=== PATIENT | male | born 1995 | race Caucasian/White ===

== ENCOUNTER 2019-04-03 00:11 | Emergency (ER) | payer SELFPAY ==
[2019-04-03] MEDS ORDERED: IPRATROPIUM/ALBUTEROL 0.5-2.5 MG/3 ML AMPUL NEB ONE ×2 (01:32→02:34)
[2019-04-03 02:18] LABS: ABSOLUTE BASOPHILS # (AUTO) 0.1 10^3/uL (0.0-0.2); ABSOLUTE EOSINOPHILS # (AUTO) 1.4 10^3/uL (0.0-0.6); ABSOLUTE LYMPHOCYTES (AUTO) 2.8 10^3/uL (0.5-4.7); ABSOLUTE NEUT (AUTO) 7.3 10^3/uL (1.7-8.2); EOSINOPHILS % (AUTO) 11.1 % (0-6); HEMATOCRIT 43.6 % (37.9-51.0); HEMOGLOBIN 14.8 g/dL (13.5-17.0); LYMPHOCYTES % (AUTO) 21.8 % (13-45); MEAN CORPUSCULAR HEMOGLOBIN 29.8 pg (27.0-33.4); MEAN CORPUSCULAR VOLUME 88 fl (80-97); MONOCYTES % (AUTO) 7.9 % (3-13); PLATELET COUNT 220 10^3/uL (150-450); RED BLOOD COUNT 4.97 10^6/uL (4.35-5.55); RED CELL DISTRIBUTION WIDTH 12.7 % (11.5-14.0); SEGMENTED NEUTROPHILS % (AUTO) 58.2 % (42-78); TOTAL CELLS COUNTED % (AUTO) 100 %; WHITE BLOOD COUNT 12.6 10^3/uL (4.0-10.5)
[2019-04-03 02:31] LABS: ANION GAP 7 (5-19); BLOOD UREA NITROGEN 14 mg/dL (7-20); CALCIUM 9.4 mg/dL (8.4-10.2); CARBON DIOXIDE 26 mmol/L (22-30); CHLORIDE 108 mmol/L (98-107); GLUCOSE 111 mg/dL (75-110); POTASSIUM 3.8 mmol/L (3.6-5.0)
--- NOTE | 2019-04-03 02:32 | RADIOLOGY REPORT (SQ) ---
EXAM DESCRIPTION: [facility]: XR CHEST 1 VIEW CLINICAL HISTORY: 23 years Male, cough COMPARISON: None. FINDINGS: Lungs are clear, with no focal infiltrate, pneumothorax, or pleural effusion. Mediastinum is within normal limits for this positioning. Bony structures are unremarkable. IMPRESSION: 1. No acute pulmonary findings.
--- NOTE | 2019-04-03 02:36 | ER Document Report ---
ED General - General Chief Complaint: Shortness Of Breath Stated Complaint: SHORTNESS OF BREATH Time Seen by Provider: 04/03/19 01:19 Notes: Patient is a 23-year-old male who presents the emergency department with a chief complaint of shortness of breath. He states that he has had on and off shortness of breath for the past week. He also states that he has had a cough. He states that earlier he felt worse, but he continues to have some shortness of breath. Patient denies any past medical history. Dates he has been coughing up some green and yellow sputum. Past medical history includes ADD, but the patient is he outgrew it. TRAVEL OUTSIDE OF THE [place] IN LAST 30 DAYS: No - Related Data Allergies/Adverse Reactions: No Known Allergies Allergy (Verified 04/03/19 00:18) Past Medical History - General Information source: Patient - Social History Smoking Status: Current Every Day Smoker Family History: Reviewed & Not Pertinent Patient has suicidal ideation: No Patient has homicidal ideation: No Renal/ Medical History: Denies: Hx Peritoneal Dialysis Review of Systems - Review of Systems Notes: REVIEW OF SYSTEMS: CONSTITUTIONAL : Denies recent illness. Denies recent unintentional weight loss. Denies fever, chills, or sweats. EENT: Denies eye, ear, throat, or mouth pain, discharge, or symptoms. Denies nasal or sinus congestion. CARDIOVASCULAR: Denies chest pain. RESPIRATORY: See HPI GASTROINTESTINAL: Denies nausea, vomiting, and diarrhea. Denies abdominal pain. Denies constipation. GENITOURINARY: Denies difficulty urinating, burning, blood in urine, urgency or frequency. MUSCULOSKELETAL: Denies neck and back pain. Denies joint pain or swelling. SKIN: Denies rash, itchiness, or lesions HEMATOLOGIC : Denies easy bruising or bleeding. LYMPHATIC: Denies swollen, painful, enlarged glands. NEUROLOGICAL: Denies no numbness or tingling denies weakness. Denies headache. Denies altered mental status. Denies alteration in speech. PSYCHIATRIC: Denies stress, anxiety, alteration in sleep patterns, or depression. All other systems reviewed and negative. Physical Exam - Vital signs Vitals: Temp Pulse Resp BP Pulse Ox 98.0 F 80 26 H 109/67 100 04/03/19 00:21 04/03/19 00:21 04/03/19 00:21 04/03/19 00:21 04/03/19 00:21 - Notes Notes: PHYSICAL EXAMINATION: GENERAL: Appears well, healthy, well-nourished, no acute distress. HEAD: Normocephalic, atraumatic. EYES: PERRL, conjunctiva normal, all extraocular movements intact, sclera nonicteric ENT: Moist mucous membranes. NECK: Supple, no noticeable swelling, redness, rash. Normal range of motion. LUNGS: Expiratory wheezes noted throughout all lung zapien. CARDIOVASCULAR: S1-S2, regular rate, regular rhythm. Radial pulses 2+, normal. ABDOMEN: Normoactive bowel sounds. Soft, nontender, no guarding, no rebound tenderness, and no masses palpated. EXTREMITIES: Normal strength and range of motion, no pitting or edema. No cyanosis. NEUROLOGICAL: Moves all extremities upon command. Strength 5/5 in all extremities. PSYCH: Normal mood, normal affect. SKIN: Warm, dry. No rash, lesions, ulcerations noted. Normal skin turgor. Course - Re-evaluation Re-evalutation: 04/03/19 02:36 I reevaluated the patient and the patient states he feels much better. His x- ray is negative for any pneumonia. He still is wheezy and I will order another DuoNeb treatment. Chest x-ray is negative for any pneumonia. Hematology shows a mild leukocytosis of 12,000, but no pneumonia noted on x-ray. Chemistries are unremarkable. 04/03/19 03:00 Patient states that he feels dramatically better at this time. No wheezes appreciated on examination. At this time, I will have the patient follow-up with a primary care provider where he lives. He is visiting from out of town. He [place] to [place]. He will be sent home with an albuterol inhaler with a spacer. Follow-up precautions were given. Verbal discharge instructions were given to the patient. They verbalized understanding. They are stable for discharge. - Vital Signs Vital signs: Temp Pulse Resp BP Pulse Ox 98.2 F 80 21 H 113/46 L 99 04/03/19 03:30 04/03/19 00:21 04/03/19 03:03 04/03/19 03:03 04/03/19 03:03 - Laboratory Result Diagrams: 04/03/19 01:55 04/03/19 01:55 Laboratory results interpreted by me: 04/03/19 04/03/19 01:55 01:55 WBC 12.6 H Eosinophils % 11.1 H Absolute Eosinophils 1.4 H Chloride 108 H Glucose 111 H - EKG Interpretation by Me Additional EKG results interpreted by me: 04/03/19 02:39 Sinus rhythm. Rate 62. NJ 132; QRS 90; QT 388; QTc 394. No ST elevations or depressions noted. Discharge - Discharge Clinical Impression: Shortness of breath, Wheezing Condition: Stable Disposition: HOME, SELF-CARE Additional Instructions: You are seen today in the emergency department for shortness of breath. Your shortness of breath improved with breathing treatments. You are being sent home with an albuterol inhaler to help with any shortness of breath. Your chest x- ray was normal. Please follow-up with a primary care provider where you live. You are being sent home with an albuterol inhaler you take 1 to 2 puffs every 4- 6 hours as needed for shortness of breath.
[2019-04-03] MEDS ORDERED: ALBUTEROL SULFATE HFA (90 MCG/PUFF) 8 GM MDI (1 MDI/ER DISP) IH PRN (03:31)
[2019-04-03 03:45] VITALS: BP 113/46
--- NOTE | 2019-04-03 14:33 | EKG REPORT ---
SEVERITY:- ABNORMAL ECG - SINUS RHYTHM NONSPECIFIC T ABNORMALITIES, INFERIOR LEADS : Confirmed by: Mary Harper MD 03-Apr-2019 14:32:56
== END 2019-04-03 03:45 | disposition home or self-care (01) ==
LOC: EDSEX → ER 00:11
DX: R06.02 Shortness of breath (principal); R06.2 Wheezing; R05 Cough; F98.8 Other specified behavioral and emotional disorders with onset usually occurring in childhood and adolescence; F17.200 Nicotine dependence, unspecified, uncomplicated
CPT/HCPCS: 93005; 94640 ×2; 99284; 36415; 85025; 80048; 71045; 93010; J3490; J7620